=== PATIENT | male | born 1975 | race Caucasian/White ===

== ENCOUNTER 2016-09-03 19:42 | Emergency (ER) | payer MEDICAID | END 2016-09-03 22:02 | disposition home or self-care (01) | LOC: D.ER 19:42 | DX: S62.602A Fracture of unspecified phalanx of right middle finger, initial encounter for closed fracture (principal); X58.XXXA Exposure to other specified factors, initial encounter; Y93.89 Activity, other specified; Y92.89 Other specified places as the place of occurrence of the external cause; S69.91XA Unspecified injury of right wrist, hand and finger(s), initial encounter; S61.302A Unspecified open wound of right middle finger with damage to nail, initial encounter; Z85.038 Personal history of other malignant neoplasm of large intestine ==